=== PATIENT | male | born 1960 | race Caucasian/White ===

== ENCOUNTER 2019-07-16 15:52 | Emergency (ER) | payer OTHER ==
[~2019-07-16] VITALS: Ht 170.2 cm; Wt 86.6 kg
[2019-07-16 16:01] VITALS: Ht 170.2 cm; Wt 86.6 kg
[2019-07-16 17:30] VITALS: BP 133/79
== END 2019-07-16 17:30 | disposition home or self-care (01) ==
LOC: ED 15:52
DX: M25.511 Pain in right shoulder (principal)